=== PATIENT | female | born 2005 | race Caucasian/White ===

== ENCOUNTER 2023-09-03 12:17 | Observation (INO) | payer BC ==
[2023-09-03 12:33] LABS: BASOPHILS ABSOLUTE AUTO 0.01 10^3/uL (0.00-0.50); EOSINOPHILS ABSOLUTE AUTO 0.04 10^3/uL (0.00-1.50); EOSINOPHILS PERCENT AUTO 0.2 % (0-6); HEMATOCRIT 43.1 % (37.0-47.0); HEMOGLOBIN 14.7 g/dL (12.0-16.0); IMMATURE GRAN ABSOLUTE AUTO 0.05 10^3/uL (0.00-0.49); IMMATURE GRAN PERCENT AUTO 0.2 % (0.0-4.9); LYMPHOCYTES ABSOLUTE AUTO 1.46 10^3/uL (0.60-5.00); LYMPHOCYTES PERCENT AUTO 6.4 % (24-44); MEAN CORPUSCULAR HEMOGLOBIN 26.9 pg (27.0-32.0); MEAN CORPUSCULAR HGB CONC 34.1 g/dL (32.0-36.0); MEAN CORPUSCULAR VOLUME 78.8 fL (83.0-97.0); MONOCYTES ABSOLUTE AUTO 0.63 10^3/uL (0.00-1.50); MONOCYTES PERCENT AUTO 2.8 % (0-10); NEUTROPHILS ABSOLUTE AUTO 20.46 x10^3/uL (1.80-8.00); NEUTROPHILS PERCENT AUTO 90.4 % (41-71); PLATELET COUNT,PLT 415 10^3/uL (150-400); RED BLOOD CELL COUNT 5.47 x10^6/uL (4.00-5.50)
[2023-09-03 12:36] LABS: APPEARANCE,URINE CLEAR (CLEAR); BILIRUBIN,URINE SMALL (NEGATIVE); COLOR,URINE DARK YELLOW (YELLOW); GLUCOSE,URINE NEGATIVE (NEGATIVE); KETONES,URINE >=160 mg/dL (NEGATIVE); LEUKOCYTE ESTERASE,URINE NEGATIVE (NEGATIVE); NITRITE,URINE NEGATIVE (NEGATIVE); OCCULT BLOOD,URINE SMALL (NEGATIVE); PROTEIN,URINE 30 mg/dL (NEGATIVE); UROBILINOGEN,URINE 0.2 EU/dL (0.2-1.0)
[2023-09-03 12:46] LABS: ALANINE AMINOTRANSFERASE,ALT 17 U/L (12-78); ALKALINE PHOSPHATASE 147 U/L (46-116); ASPARTATE AMNIOTRANSFERASE,AST 12 U/L (15-37); BILIRUBIN TOTAL 0.5 mg/dL (0.0-1.0); BLOOD UREA NITROGEN,BUN 9 mg/dL (7-18); C-REACTIVE PROTEIN 4.54 mg/dL (<=0.30); CALCIUM 9.8 mg/dL (8.4-10.1); CARBON DIOXIDE,CO2 22 mmol/L (21-32); CHLORIDE,CL 103 mEq/L (98-106); CREATININE 0.5 mg/dL (0.6-1.0); GLUCOSE RANDOM 140 mg/dL (75-99); POTASSIUM,K 3.8 mEq/L (3.5-5.0); PROTEIN TOTAL,TP 8.7 g/dL (6.4-8.2); SODIUM,NA 140 mEq/L (136-145)
[2023-09-03 12:48] LABS: ESTIMATED GFR 138 mL/min (>=60)
[2023-09-03 12:49] LABS: BACTERIA,URINE OCCASIONAL /HPF (NOT SEEN); EPITHELIAL CELLS,URINE MODERATE /HPF (NOT SEEN); MUCUS,URINE FEW /HPF (NOT SEEN)
[2023-09-03 13:04] LABS: WHITE BLOOD CELL COUNT,WBC 22.7 10^3/uL (4.0-11.0)
[2023-09-03] MEDS ORDERED: Acetaminophen 325 MG Tab PO PRN (14:09)
[2023-09-03] MEDS ORDERED: Ondansetron 4 MG/2 ML SDV IV PRN (14:09)
[2023-09-03] MEDS ORDERED: Ondansetron 4 MG Tab.DIS PO PRN (14:09)
[2023-09-03] MEDS ORDERED: Sodium Chloride 0.9% 10 ML Syringe FLUSH PRN (14:09)
[2023-09-03] MEDS: HYDROmorphone 0.5 MG/0.5 ML Syringe IVPUSH PRN (14:24)
[2023-09-03] MEDS: Pantoprazole 40 MG Vial IVPUSH ONE (14:24)
[2023-09-03] MEDS: Sodium Chloride 0.9% 1,000 ML IV ONE (14:24)
[2023-09-03] MEDS: Pantoprazole 40 MG Vial IVPUSH SCH (14:33)
[2023-09-03] MEDS: Iopamidol 755 Mg/ML 100 ML Bottle IVPUSH ONE (15:05)
[2023-09-03] MEDS: cefTRIAXone 2 GM Vial IVPUSH ONE (15:06)
[2023-09-03] MEDS: Sodium Chloride 0.9% 1,000 ML IV SCH (16:29)
[2023-09-03] MEDS: HYDROmorphone 0.5 MG/0.5 ML Syringe IVPUSH STA (17:35)
== END 2023-09-03 18:00 ==
LOC: CC.FCMC 12:17 → CC.MS 12:17 → INTOOBSV 13:25 → CC.MS 13:25
PROVIDERS: ADMIT Physician Assistant Medical; ATTEND Physician Assistant Medical
DX: K81.0 Acute cholecystitis (principal); K21.9 Gastro-esophageal reflux disease without esophagitis; Z88.0 Allergy status to penicillin; Z79.899 Other long term (current) drug therapy
CPT/HCPCS: 36415; 74177; 76705; 80053; 81001; 85025; 86140; 96361; 96374; 96375; 96376; 99236; C9113; G0378; J0696; J1170; J7030; Q9967